=== PATIENT | male | born 1995 | race Caucasian/White ===

== ENCOUNTER 2017-04-22 10:06 | Emergency (ER) | payer BC, OTHER ==
[2017-04-22 10:22] VITALS: RESP 16; TEMP 98.6; O2SAT 96
--- NOTE | 2017-04-22 10:38 | EDPHY ---
H & P Time Seen by Provider: 04/22/17 10:25 HPI/ROS: CHIEF COMPLAINT: Right testicular pain HISTORY OF PRESENT ILLNESS: Patient had some dysuria about 4 weeks ago which resolved. About 1 week ago he had some discomfort in his groin followed by swelling in his right testicle. Presents for evaluation today. Swelling moderate not radiating. Not associated with current urinary symptoms or nausea or vomiting. No recent injury or trauma. No fever or chills. REVIEW OF SYSTEMS: Eye: no change in vision ENT: no sore throat Cardiac: no chest pain or syncope Pulmonary: no cough or SOB Abdomen: no vomiting, diarrhea, abdominal pain Musculoskeletal: no back pain Skin: no rash Neuro: no headache Constitutional: no fever : HPI A comprehensive 10 point review of systems is otherwise negative aside from elements mentioned in the history of present illness. PAST MEDICAL HISTORY: Includes surgery for throat abscess and brain surgery for Arnold-Chiari malformation. Social history: Nonsmoker General Appearance: Alert and conversant, cooperative. Eyes: No scleral icterus. ENT, Mouth: Normal mucous membranes. Respiratory: Normal respiratory effort, breath sounds equal, lungs are clear to auscultation. Cardiovascular: Regular rate and rhythm. Gastrointestinal: Abdomen is soft and non tender. No inguinal hernia appreciated. Right testicle has mild swelling and tenderness but no masses palpated. Scrotum externally appears normal without skin changes. Cremasteric reflex is present. Neurological: Alert and oriented x3. Normally conversant. Ambulatory, not ataxic. Skin: Warm and dry, no rashes. Musculoskeletal: No peripheral edema and no joint swelling. Psychiatric: Not agitated. Emergency Department course/MDM: Urinalysis and testicular ultrasound. US per Finer R epididymitis, no torsion or mass, 1142. Urinalysis normal. Results discussed with the patient. Will treat with ceftriaxone and doxycycline and urine sent for gonorrhea and chlamydia. This point unlikely that he has testicular cancer or mass, torsion, incarcerated hernia. Smoking Status: Never smoked Constitutional: Initial Vital Signs Temperature (C) 37.0 C 04/22/17 10:18 Heart Rate 67 04/22/17 10:18 Respiratory Rate 16 04/22/17 10:18 Blood Pressure 128/68 H 04/22/17 10:18 O2 Sat (%) 96 04/22/17 10:18 O2 Delivery Mode Room Air Allergies/Adverse Reactions: No Known Allergies Allergy (Unverified 04/23/16 09:08) Home Medications: Medication Instructions Recorded Doxycycline Hyclate 100 mg PO Q12 10 Days 04/22/17 Medical Decision Making - Diagnostics Imaging Results: Imaging Impressions Testicular Ultrasound 04/22/17 10:36 Impression: 1. Normal-appearing testicles. 2. Moderate thickening of the epididymal tail on the right with increased color flow enhancement compatible with epididymitis. Findings discussed with Colton Abbott M.D. at 11:41 hour, 04/22/2017.. - Data Points Laboratory Results: 04/22/17 04/22/17 10:15 10:15 Urine Color YELLOW Urine Appearance CLEAR Urine pH 5.0 (5.0-7.5) Ur Specific [place] 1.019 (1.002-1.030) Urine Protein NEGATIVE (NEGATIVE) Urine Ketones NEGATIVE (NEGATIVE) Urine Blood NEGATIVE (NEGATIVE) Urine Nitrate NEGATIVE (NEGATIVE) Urine Bilirubin NEGATIVE (NEGATIVE) Urine Urobilinogen NEGATIVE EU EU (0.2-1.0) Ur Leukocyte Esterase NEGATIVE (NEGATIVE) Urine Glucose NEGATIVE (NEGATIVE) C.trachomatis RNA (TMA) Pending N.gonorrhoeae RNA (TMA) Pending Medications Given: Discontinued Medications Ceftriaxone Sodium (Rocephin Im Syringe) 250 mg IM ONCE ONE PRN Reason: Protocol Stop: 04/22/17 12:23 Last Admin: 04/22/17 12:58 Dose: 250 mg Departure - Departure Disposition: Home, Routine, Self-Care Clinical Impression: Epididymitis, right Condition: Good Instructions: Epididymitis (ED) Referrals: Osiel Mac MD [Medical Doctor] - 2-3 days, if not improved Prescriptions: Doxycycline Hyclate 100 mg PO Q12 10 Days
[2017-04-22 10:43] LABS: COLOR YELLOW; LEUKOCYTE ESTERASE,URINE NEGATIVE (NEGATIVE); NITRITE,URINE NEGATIVE (NEGATIVE)
[2017-04-22] MEDS ORDERED: CEFTRIAXONE IM 350 MG/ML SYRINGE IM ONE (12:22)
[2017-04-22 13:06] VITALS: BP 131/66; PULSE 68
[2017-04-23 11:44] LABS: CHLAMYDIA AMPLIFICATION GENPRB POSITIVE (NEGATIVE)
== END 2017-04-22 13:06 | disposition home or self-care (01) ==
DX: N45.1 Epididymitis (principal)
CPT/HCPCS: J0696